=== PATIENT | female | born 1975 | race Caucasian/White ===

== ENCOUNTER 2019-08-07 11:30 | Emergency (ER) | payer SELFPAY ==
[~2019-08-07] VITALS: Ht 170 cm; Wt 88.0 kg
[~2019-08-07 11:30] MED LIST: AMOX500C2 PO; AMOXICILLIN; FAMO20TA5 PO; HSCO125 PO; HYDR-2890 PO; IBUP200T48 PO; METF-397 PO; MTF500T PO; NAPR-243 PO; OMEP40CA36 PO; SCR1T PO; SULF-109 PO; TRM50T PO
[2019-08-07] MEDS ORDERED: NS 100 ML (IVPB) BAG IV ONE (11:45)
[2019-08-07] MEDS ORDERED: IOHEXOL 350 MG/ML 100 ML (OMNIPAQUE 350) VIAL IV ONE (11:45)
[2019-08-07] MEDS ORDERED: HOLD METFORMIN - RECEIVED CONTRAST 20 ML VIAL IV SCH (11:45)
[2019-08-07 11:51] LABS: BASOPHILS % (AUTO) 0 % (0-10); EOSINOPHILS # (AUTO) 0.2 10^3/uL (0.0-0.3); EOSINOPHILS % (AUTO) 2 % (0-10); HEMATOCRIT 48 % (35-52); HEMOGLOBIN 16.8 G/DL (11.5-16.0); LYMPHOCYTES % (AUTO) 27 % (12-44); MEAN CORPUSCULAR HEMOGLOBIN 28 PG (25-34); MEAN CORPUSCULAR HGB CONC 35 G/DL (32-36); MEAN CORPUSCULAR VOLUME 79 FL (80-99); MEAN PLATELET VOLUME 10.3 FL (7.4-10.4); MONOCYTES # (AUTO) 0.7 X 10^3 (0.0-1.0); MONOCYTES % (AUTO) 6 % (0-12); NEUTROPHILS # (AUTO) 7.4 X 10^3 (1.8-7.8); NEUTROPHILS % (AUTO) 66 % (42-75); PLATELET COUNT 315 10^3/uL (130-400); RED CELL DISTRIBUTION WIDTH 13.7 % (10.0-14.5); WHITE BLOOD COUNT 11.2 10^3/uL (4.3-11.0)
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
[2019-08-07 12:12] LABS: ALANINE AMINOTRANSFERASE 25 U/L (0-55); ALBUMIN 4.4 GM/DL (3.2-4.5); ALKALINE PHOSPHATASE 114 U/L (40-136); BILIRUBIN,TOTAL 0.4 MG/DL (0.1-1.0); BUN/CREATININE RATIO 14; CALCIUM 9.3 MG/DL (8.5-10.1); CARBON DIOXIDE 23 MMOL/L (21-32); CHLORIDE 104 MMOL/L (98-107); CREATININE SERUM 0.71 MG/DL (0.60-1.30); GFR ESTIMATED > 60; GLUCOSE 334 MG/DL (70-105); SODIUM 137 MMOL/L (135-145); TOTAL PROTEIN 7.5 GM/DL (6.4-8.2)
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
[2019-08-07] MEDS ORDERED: METH-313 PO ×2 (14:00→14:35)
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
[2019-08-07 14:34] VITALS: BP 152/90
== END 2019-08-07 14:34 | disposition home or self-care (01) ==
LOC: EDUNIT# 11:30 → ER 11:31
DX: S16.1XXA Strain of muscle, fascia and tendon at neck level, initial encounter (principal); S20.212A Contusion of left front wall of thorax, initial encounter; K21.9 Gastro-esophageal reflux disease without esophagitis; E11.9 Type 2 diabetes mellitus without complications; G62.9 Polyneuropathy, unspecified; R40.2142 Coma scale, eyes open, spontaneous, at arrival to emergency department; R40.2252 Coma scale, best verbal response, oriented, at arrival to emergency department; R40.2362 Coma scale, best motor response, obeys commands, at arrival to emergency department; F17.210 Nicotine dependence, cigarettes, uncomplicated; Z88.8 Allergy status to other drugs, medicaments and biological substances; Z98.51 Tubal ligation status; V49.40XA Driver injured in collision with unspecified motor vehicles in traffic accident, initial encounter; Y92.410 Unspecified street and highway as the place of occurrence of the external cause
CPT/HCPCS: 36415; 70450; 71260; 72125; 74160; 80053; 84703; 85025

== ENCOUNTER 2020-12-31 17:38 | Emergency (ER) | payer SELFPAY ==
[~2020-12-31] VITALS: Ht 170 cm; Wt 88.0 kg
[~2020-12-31 17:38] MED LIST changes: +METH-313 PO
[2020-12-31 17:53] VITALS: BP 159/83
[2020-12-31] MEDS ORDERED: HYDR25CA PO (18:09)
[2020-12-31] MEDS ORDERED: PRD20T PO (18:09)
--- NOTE | 2020-12-31 18:09 | ED Integumentary General ---
General Chief Complaint: Skin/Wound Problems Stated Complaint: ITCHY RASH ALL OVER BODY Nursing Triage Note: pt presents to ed with complaints of generalized rash that started on her neck and chest and has spread down her body since tuesday. pt reports she was seen at [facility] on tuesday and given a steriod shot. reports she felt better that day then it came back tuesday. Source: patient Exam Limitations: no limitations History of Present Illness Date Seen by Provider: Dec 31, 2020 Time Seen by Provider: 18:07 Initial Comments To ER with reports of a rash that started on her neck and chest and extended downward from there. This began on Tuesday of this week. She was seen at [facility] and given a shot of steroids which helped for about 1 day and then the rash recurred. Timing/Duration: constant Severity: moderate Modifying Factors: improves with scratching Associated Symptoms: denies symptoms Allergies and Home Medications Allergies Coded Allergies: Mtklmvk-Jxy-Gar Reductase Inhibitor (Unverified Allergy, Unknown, 04/21/16) "arms went numb" Home Medications Methocarbamol 750 Mg Tablet, 750 MG PO Q6H PRN for PAIN-MODERATE . Prescribed by: SADAF BOYER on 08/07/19 6704 Patient Home Medication List Home Medication List Reviewed: Yes Review of Systems Review of Systems Constitutional: see HPI EENTM: see HPI Respiratory: no symptoms reported Cardiovascular: no symptoms reported Genitourinary: no symptoms reported Musculoskeletal: no symptoms reported Skin: no symptoms reported Psychiatric/Neurological: No Symptoms Reported Endocrine: No Symptoms Reported Hematologic/Lymphatic: No Symptoms Reported Past Prsorlx-Kusdds-Zmatfb Hx Patient Social History Alcohol Use: Denies Use Smoking Status: Current Everyday Smoker Type Used: Cigarettes Recent Infectious Disease Expo: No Recent Hopitalizations: No Immunizations Up To Date Tetanus Booster (TDap): Unknown Seasonal Allergies Seasonal Allergies: No Past Medical History Surgeries: Yes (INFLAMMED LIGAMENT RIGHT WRIST) Orthopedic, Tubal Ligation Respiratory: No Cardiac: No Neurological: Yes (HANDS/FEET) Neuropathy Female 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 Genitourinary: No Gastrointestinal: Yes Gastroesophageal Reflux Musculoskeletal: Yes (BILATERAL HEEL SPURS, NO SURGERY) Endocrine: Yes (NOT TAKING INSULIN) Diabetes, Insulin dep Cancer: No Psychosocial: No Integumentary: No Blood Disorders: No Adverse Reaction/Blood Tranf: No Physical Exam Vital Signs Vital Signs - First Documented 12/31/20 17:53 Temp 36.6 Pulse 118 Resp 16 B/P (MAP) 159/83 (108) Pulse Ox 98 Capillary Refill : Less Than 3 Seconds General Appearance: WD/WN, no apparent distress HEENT: PERRL/EOMI, normal ENT inspection Respiratory: no respiratory distress, no accessory muscle use Neurologic/Psychiatric: alert, normal mood/affect, oriented x 3 Skin: normal color, warm/dry Skin Problem Character: other (Diffuse urticarial type rash ) Progress/Results/Core Measures Results/Orders My Orders Orders - SADAF BOYER APRN Hydroxyzine Cap/Tab (Vistaril) (12/31/20 18:15) Prednisone Tablet (Deltasone Tablet) (12/31/20 18:15) Vital Signs/I&O 12/31/20 17:53 Temp 36.6 Pulse 118 Resp 16 B/P (MAP) 159/83 (108) Pulse Ox 98 Blood Pressure Mean: 108 Departure Impression Primary Impression: Rash and nonspecific skin eruption Disposition: 01 HOME, SELF-CARE Condition: Stable Departure-Patient Inst. Decision time for Depature: 18:08 Referrals: NO,LOCAL PHYSICIAN (PCP/Family) Primary Care Physician Patient Instructions: Skin Rash ED Scripts Prednisone (Prednisone) 20 Mg Tab 40 MG PO DAILY, #6 TAB 0 Refills Prov: SADAF BOYRE APRN 12/31/20 Hydroxyzine Pamoate (Vistaril) 25 Mg Capsule 25 MG PO Q4H PRN for ITCHING, #14 CAP Prov: SADAF BOYER APRN 12/31/20 SADAF BOYER APRN Dec 31, 2020 18:09
[2020-12-31] MEDS ORDERED: hydrOXYzine (VISTARIL/ATARAX) 25 MG capsule/tablet PO ONE (18:15)
[2020-12-31] MEDS ORDERED: predniSONE 20 MG TAB PO ONE (18:15)
== END 2020-12-31 18:16 | disposition home or self-care (01) ==
LOC: EDUNIT# 17:38 → ER 17:41
DX: R21 Rash and other nonspecific skin eruption (principal); F17.210 Nicotine dependence, cigarettes, uncomplicated; Z88.8 Allergy status to other drugs, medicaments and biological substances
CPT/HCPCS: 99283